=== PATIENT | male | born 1965 | race Two or more races ===

== ENCOUNTER 2022-04-28 09:54 | Inpatient (IN) | payer OTHER ==
[~2022-04-28] VITALS: Ht 167.6 cm; Wt 101.8 kg
[~2022-04-28 09:54] MED LIST: AML5T PO; LOSA-69 PO; MET50T PO
[2022-04-28 11:24] LABS: Albumin 2.5 g/dL (3.4-5.0); Calcium 8.7 mg/dL (8.5-10.1)
[2022-04-28 11:29] LABS: BUN/Creatinine Ratio 10.1; Bilirubin, Total 4.6 mg/dL (0.2-1.0); Total Protein 6.6 g/dL (6.4-8.2)
[2022-04-28 11:32] LABS: Potassium 2.3 mmol/L (3.5-5.1)
[2022-04-28 11:34] LABS: Basophils # (auto) 0 10 ^3/uL (0-0.2); Basophils % (auto) 0.4 % (0.0-2.0); Eosinophils # (auto) 0.1 10 ^3/uL (0-0.8); Eosinophils % (auto) 0.6 % (0.0-7.0); Hematocrit 34.6 % (41.0-53.0); Hemoglobin 11.6 g/dL (13.5-17.5); Lymphocytes # (auto) 1.7 10 ^3/uL (0.4-5.4); Lymphocytes % (auto) 18.5 % (10.0-50.0); Mean Corpuscular Hemoglobin 32.3 pg (28.0-32.0); Mean Corpuscular Hgb Conc. 33.7 g/dL (32.0-36.0); Monocytes # (auto) 0.7 10 ^3/uL (0-1.3); Monocytes % (auto) 7.7 % (0.0-12.0); Neutrophils # (auto) 6.7 10 ^3/uL (1.6-8.6); Neutrophils % (auto) 72.8 % (37.0-80.0); Nucleated Red Blood Cells % 0.7 %; Red Cell Distribution Width 21.5 % (11.8-14.3); White Blood Cell 9.2 10^3/uL (4.4-10.8)
[2022-04-28] MEDS ORDERED: SODIUM CHLORIDE 0.9% 500 ML IV ONE (12:00)
[2022-04-28] MEDS: MAGNESIUM SULFATE 1GM/100ML 100 ML IV SCH ×2 (12:19→13:34)
[2022-04-28] MEDS ORDERED: LORazepam 2MG/ML-1ML VIAL IV ONE (12:30)
[2022-04-28] MEDS ORDERED: LACTATED RINGER'S 1,000 ML IV ONE ×2 (12:30→16:30)
[2022-04-28 13:08] LABS: Alanine Aminotransferase 57 U/L (16-61); Albumin 2.4 g/dL (3.4-5.0); Alkaline Phosphatase 232 U/L (45-117); Anion Gap 15 (5-15); Aspartate Aminotransferase 134 U/L (15-37); BUN/Creatinine Ratio 12.6; Bilirubin, Total 4.2 mg/dL (0.2-1.0); Blood Alcohol < 3.0 mg/dL (0-5); Blood Urea Nitrogen 24 mg/dL (7-18); Calcium 8.3 mg/dL (8.5-10.1); Carbon Dioxide 28 mmol/L (21-32); Chloride 87 mmol/L (98-107); GFR African American 48 mL/min; GFR Non-African American 39 mL/min; Glucose 99 mg/dL (74-106); Magnesium 2.2 mg/dL (1.6-2.6); Sodium 130 mmol/L (136-145)
[2022-04-28 13:12] LABS: Potassium 2.2 mmol/L (3.5-5.1)
[2022-04-28] MEDS ORDERED: POTASSIUM CHL 20 Meq TABLET PO ONE (13:15)
[2022-04-28 13:54] LABS: Lactic Acid w/Reflex 2.1 mmol/L (0.4-2.0)
[2022-04-28] MEDS: POTASSIUM CHL 20MEQ/100ML 100 ML IV SCH ×5 (14:32→20:48)
[2022-04-28] MEDS ORDERED: MORPHINE SULFATE INJ 2 MG/ml SYRG IV PRN ×3 (14:45→21:00)
[2022-04-28] MEDS ORDERED: NITROGLYCERIN 0.4 MG SL TAB SL PRN (14:45)
[2022-04-28] MEDS ORDERED: SODIUM CHLORIDE 0.9% 2,000 ML IV ONE (14:45)
[2022-04-28] MEDS ORDERED: METOPROLOL TARTRATE 1MG/1ML-5ML VIAL IV PRN (14:45)
[2022-04-28] MEDS ORDERED: ONDANSETRON HCL 4 MG/2 ML VIAL IV PRN (14:45)
[2022-04-28 19:58] LABS: Calcium 8.7 mg/dL (8.5-10.1)
[2022-04-28 20:00] LABS: BUN/Creatinine Ratio 13.8
[2022-04-28 20:04] LABS: Potassium 2.6 mmol/L (3.5-5.1)
[2022-04-28] MEDS ORDERED: POTASSIUM CHL 20MEQ/100ML 100 ML IV SCH (20:45)
[2022-04-28] MEDS ORDERED: HYDROcodone-ACET 5/325MG TAB PO PRN (21:00)
[2022-04-28] MEDS ORDERED: PANTOPRAZOLE 40 MG/10 ML VIAL INJ IV ONE (21:00)
[2022-04-28] MEDS ORDERED: hydrALAZINE HCL 20 MG/ML VL IV PRN (21:00)
[2022-04-28] MEDS ORDERED: ACETAMINOPHEN 325 MG TAB PO PRN (21:00)
[2022-04-28] MEDS ORDERED: LORazepam 0.5 MG TAB PO PRN (21:00)
[2022-04-28] MEDS ORDERED: DOCUSATE SOD 100 MG CAP PO PRN (21:00)
[2022-04-28 21:48] LABS: INR 1.1 (0.9-1.15); Partial Thromboplastin Time 23.1 sec (23.6-33.0)
[2022-04-28 21:54] LABS: Magnesium 2.5 mg/dL (1.6-2.6); Phosphorus 1.2 mg/dL (2.5-4.90)
[2022-04-29 01:39] LABS: Calcium 8.6 mg/dL (8.5-10.1)
[2022-04-29 01:42] LABS: BUN/Creatinine Ratio 15.6
[2022-04-29 01:53] LABS: Potassium 2.8 mmol/L (3.5-5.1)
[2022-04-29] MEDS: POTASSIUM CHL 20MEQ/100ML 100 ML IV SCH (02:42)
[2022-04-29] MEDS ORDERED: POTASSIUM PHOSPHATE 44 MEQ in D5W 5% 250 ML IV ONE (02:45)
[2022-04-29] MEDS: SOD CHL 0.9%/ KCL 20MEQ 1,000 ML IV SCH ×3 (04:05→17:25)
[2022-04-29] MEDS: GABAPENTIN 100 MG CAP PO SCH ×3 (06:00→21:04)
[2022-04-29] MEDS: metroNIDAZOLE 500MG/100ML 100 ML IV SCH ×3 (06:11→21:04)
[2022-04-29 06:32] LABS: Basophils # (auto) 0 10 ^3/uL (0-0.2); Basophils % (auto) 0.5 % (0.0-2.0); Eosinophils # (auto) 0.1 10 ^3/uL (0-0.8); Hematocrit 29.2 % (41.0-53.0); Hemoglobin 9.9 g/dL (13.5-17.5); Lymphocytes # (auto) 1.6 10 ^3/uL (0.4-5.4); Mean Corpuscular Hemoglobin 32.9 pg (28.0-32.0); Mean Corpuscular Hgb Conc. 34.1 g/dL (32.0-36.0); Mean Corpuscular Volume 96.5 fL (80.0-100.0); Monocytes # (auto) 0.5 10 ^3/uL (0-1.3); Monocytes % (auto) 7.3 % (0.0-12.0); Neutrophils # (auto) 5.3 10 ^3/uL (1.6-8.6); Neutrophils % (auto) 70.2 % (37.0-80.0); Nucleated Red Blood Cells % 0.4 %; Red Blood Cells 3.03 10^6/uL (4.5-5.90); White Blood Cell 7.5 10^3/uL (4.4-10.8)
[2022-04-29 06:35] LABS: Albumin 2.2 g/dL (3.4-5.0); Anion Gap 10 (5-15); Blood Urea Nitrogen 23 mg/dL (7-18); Calcium 8.5 mg/dL (8.5-10.1); Carbon Dioxide 29 mmol/L (21-32); Chloride 94 mmol/L (98-107); Glucose 101 mg/dL (74-106); Lipase 1213 U/L (73-393); Magnesium 2.4 mg/dL (1.6-2.6); Sodium 133 mmol/L (136-145)
[2022-04-29 06:43] LABS: Thyroid Stimulating Hormone 1.96 uIU/mL (0.358-3.74)
[2022-04-29 06:49] LABS: Alanine Aminotransferase 58 U/L (16-61); Alkaline Phosphatase 214 U/L (45-117); Aspartate Aminotransferase 137 U/L (15-37); BUN/Creatinine Ratio 19.3; Bilirubin, Total 4.5 mg/dL (0.2-1.0); CRP High Sensitivity 8.29 mg/dL (< 0.3); Cholesterol 275 mg/dL (< 200); Creatine Kinase IFCC 369 U/L (39-308); GFR African American 82 mL/min; GFR Non-African American 67 mL/min; HDL Cholesterol 9 mg/dL (40-59); Phosphorus 1.4 mg/dL (2.5-4.90); Total Protein 5.9 g/dL (6.4-8.2); Triglycerides 736 mg/dL (< 150); Uric Acid 6.1 mg/dL (3.5-7.2)
[2022-04-29 06:58] LABS: Potassium 2.9 mmol/L (3.5-5.1)
[2022-04-29] MEDS ORDERED: POTASSIUM CHL 20 Meq TABLET PO ONE (07:15)
[2022-04-29 08:09] LABS: INR 1.06 (0.9-1.15); Partial Thromboplastin Time 22.5 sec (23.6-33.0)
[2022-04-29] MEDS: cefTRIAXone 1GM/50ML D5W 50 ML IV SCH (09:51)
[2022-04-29 10:33] VITALS: BP 119/81
[2022-04-29 10:33] LABS: Urine Bacteria FEW /hpf (None Seen); Urine Blood 3+ /uL (Negative); Urine Hyaline Cast FEW /lpf (0 - 2); Urine WBC 13 /hpf (0 - 3)
[2022-04-29 10:58] LABS: Alcohol, Urine < 3.0 mg/dL (0-10); Amphetamine Screen, Urine NEGATIVE (NEGATIVE); Barbiturate Scree,Urine NEGATIVE (NEGATIVE); Benzodiazephine Screen, Urine NEGATIVE (NEGATIVE); Cannabinoid Screen, Urine NEGATIVE (NEGATIVE); Cocaine Screen, Urine NEGATIVE (NEGATIVE); Opiate Scree,Urine NEGATIVE (NEGATIVE); Phencyclidine Screen, Urine NEGATIVE (NEGATIVE); Protein, Urine 47.3 mg/dL (0.0-11.9)
[2022-04-29] MEDS: ASPirin 81 mg TAB PO SCH (11:00)
[2022-04-29] MEDS: ENOXAPARIN SOD 40 MG/0.4 ML SYRINGE SC SCH (11:00)
[2022-04-29] MEDS: METOPROLOL SUCCINATE XL 50 MG TAB PO SCH (11:01)
[2022-04-29] MEDS: PANTOPRAZOLE 40 MG/10 ML VIAL INJ IV SCH (11:01)
[2022-04-29 17:18] LABS: BUN/Creatinine Ratio 15.8; Calcium 8.7 mg/dL (8.5-10.1); Potassium 3.6 mmol/L (3.5-5.1)
[2022-04-29] MEDS: TAMSULOSIN HYDROCHLORIDE 0.4 MG CAP PO SCH (19:55)
[2022-04-29 22:00] VITALS: BP 127/77
[2022-04-30 04:13] LABS: Hematocrit 26.4 % (41.0-53.0); Hemoglobin 9.2 g/dL (13.5-17.5); Mean Corpuscular Hgb Conc. 34.7 g/dL (32.0-36.0); White Blood Cell 9.1 10^3/uL (4.4-10.8)
[2022-04-30 04:34] LABS: Red Cell Distribution Width 21.4 % (11.8-14.3)
[2022-04-30 04:35] LABS: Basophils % (manual) 0 (0.0-2.0); Blast Cells 0; Myelocytes % 0; Promyelocytes % 0; Reactive Lymphocytes 0
[2022-04-30 04:37] LABS: Calcium 8.3 mg/dL (8.5-10.1); Potassium 3.1 mmol/L (3.5-5.1)
[2022-04-30 04:40] LABS: BUN/Creatinine Ratio 19.3
[2022-04-30 05:00] VITALS: BP 143/90
[2022-04-30] MEDS: GABAPENTIN 100 MG CAP PO SCH ×3 (05:17→22:12)
[2022-04-30] MEDS: metroNIDAZOLE 500MG/100ML 100 ML IV SCH ×3 (05:17→22:11)
[2022-04-30] MEDS: SOD CHL 0.9%/ KCL 20MEQ 1,000 ML IV SCH ×2 (06:34→22:20)
[2022-04-30 06:54] LABS: Band Neutrophils % (manual) 32; Eosinophils % (manual) 3 (0-7); Lymphocytes % (manual) 19 (10.0-50.0); Metamyelocytes % 2; Monocytes % (manual) 5 (0-12)
[2022-04-30 09:00] VITALS: BP 145/76
[2022-04-30] MEDS: METOPROLOL SUCCINATE XL 50 MG TAB PO SCH (11:39)
[2022-04-30] MEDS: ASPirin 81 mg TAB PO SCH (11:40)
[2022-04-30] MEDS: PANTOPRAZOLE 40 MG/10 ML VIAL INJ IV SCH (11:42)
[2022-04-30] MEDS: ENOXAPARIN SOD 40 MG/0.4 ML SYRINGE SC SCH (11:44)
[2022-04-30] MEDS: cefTRIAXone 1GM/50ML D5W 50 ML IV SCH (11:52)
[2022-04-30 13:00] VITALS: BP 115/83
[2022-04-30 17:00] VITALS: BP 108/74
[2022-04-30] MEDS: TAMSULOSIN HYDROCHLORIDE 0.4 MG CAP PO SCH (18:04)
[2022-04-30] MEDS ORDERED: POTASSIUM EFFERVESENT TAB 25 MEQ PO ONE (18:45)
[2022-04-30] MEDS ORDERED: LEVO-28 PO (18:45)
[2022-04-30] MEDS ORDERED: POTASSIUM CHL 20MEQ/100ML 100 ML IV SCH (18:45)
[2022-04-30] MEDS ORDERED: GAB100C PO (18:45)
[2022-04-30 21:33] LABS: Lactic Acid w/Reflex 2.4 mmol/L (0.4-2.0)
[2022-04-30 22:00] VITALS: BP 112/69
[2022-05-01 04:50] VITALS: BP 127/90
[2022-05-01] MEDS: metroNIDAZOLE 500MG/100ML 100 ML IV SCH (05:53)
[2022-05-01] MEDS: GABAPENTIN 100 MG CAP PO SCH (05:53)
[2022-05-01 09:00] VITALS: BP 112/69
[2022-05-01] MEDS: cefTRIAXone 1GM/50ML D5W 50 ML IV SCH (09:14)
[2022-05-01] MEDS: METOPROLOL SUCCINATE XL 50 MG TAB PO SCH (09:15)
[2022-05-01] MEDS: ENOXAPARIN SOD 40 MG/0.4 ML SYRINGE SC SCH (09:15)
[2022-05-01] MEDS: ASPirin 81 mg TAB PO SCH (09:15)
[2022-05-01] MEDS: PANTOPRAZOLE 40 MG/10 ML VIAL INJ IV SCH (09:15)
[2022-05-01] MEDS: SOD CHL 0.9%/ KCL 20MEQ 1,000 ML IV SCH (09:25)
[2022-05-01 13:06] VITALS: BP 111/77
== END 2022-05-01 15:13 | disposition home or self-care (01) | DRG 433 ==
LOC: EDBD 09:54 → ER 09:54 → TELE 14:44 → TELE-CENTR 04-29 18:22
PROVIDERS: ADMIT Hospitalist; ATTEND Internal Medicine
DX: K70.10 Alcoholic hepatitis without ascites (principal); N39.0 Urinary tract infection, site not specified; I47.1 Supraventricular tachycardia; N17.9 Acute kidney failure, unspecified; E87.1 Hypo-osmolality and hyponatremia; E87.3 Alkalosis; E87.6 Hypokalemia; D64.9 Anemia, unspecified; I12.9 Hypertensive chronic kidney disease with stage 1 through stage 4 chronic kidney disease, or unspecified chronic kidney disease; N18.31 Chronic kidney disease, stage 3a; K75.81 Nonalcoholic steatohepatitis (NASH); E83.39 Other disorders of phosphorus metabolism; E78.5 Hyperlipidemia, unspecified; R25.1 Tremor, unspecified; R74.8 Abnormal levels of other serum enzymes; Z20.822 Contact with and (suspected) exposure to COVID-19; I49.9 Cardiac arrhythmia, unspecified; K40.20 Bilateral inguinal hernia, without obstruction or gangrene, not specified as recurrent; F10.20 Alcohol dependence, uncomplicated; R79.89 Other specified abnormal findings of blood chemistry; E66.01 Morbid (severe) obesity due to excess calories; I48.91 Unspecified atrial fibrillation; N20.0 Calculus of kidney; Z87.442 Personal history of urinary calculi; Z68.36 Body mass index [BMI] 36.0-36.9, adult
CPT/HCPCS: 36415; 36600; 71045; 74176; 74181; 76705; 80048; 80053; 80061; 80307; 80320; 81001; 82270; 82435; 82436; 82550; 82728; 82805; 83036; 83605; 83615; 83690; 83735; 83880; 84100; 84156; 84300; 84439; 84443; 84484; 84550; 85007; 85025; 85027; 85379; 85610; 85652; 85730; 86141; 87040; 87086; 93005; 94660; 96365; 96366; C9113; G0378; J0696; J3480; J3490; J7060

== ENCOUNTER 2022-05-16 07:56 | Day surgery (SDC) | payer OTHER ==
[2022-04-19 11:02] LABS: INR 1.17 (0.9-1.15)
[2022-04-19 11:32] LABS: Albumin 3.1 g/dL (3.4-5.0); Calcium 8.1 mg/dL (8.5-10.1)
[2022-04-19 11:33] LABS: Basophils # (auto) 0 10 ^3/uL (0-0.2); Basophils % (auto) 0.8 % (0.0-2.0); Eosinophils # (auto) 0 10 ^3/uL (0-0.8); Eosinophils % (auto) 0.2 % (0.0-7.0); Hematocrit 42.3 % (41.0-53.0); Hemoglobin 14.6 g/dL (13.5-17.5); Lymphocytes # (auto) 1.5 10 ^3/uL (0.4-5.4); Lymphocytes % (auto) 26.7 % (10.0-50.0); Mean Corpuscular Hemoglobin 32.1 pg (28.0-32.0); Mean Corpuscular Hgb Conc. 34.5 g/dL (32.0-36.0); Mean Corpuscular Volume 93.1 fL (80.0-100.0); Monocytes # (auto) 0.6 10 ^3/uL (0-1.3); Monocytes % (auto) 10.1 % (0.0-12.0); Neutrophils # (auto) 3.5 10 ^3/uL (1.6-8.6); Neutrophils % (auto) 62.2 % (37.0-80.0); Nucleated Red Blood Cells % 1.3 %; Red Blood Cells 4.54 10^6/uL (4.5-5.90); White Blood Cell 5.7 10^3/uL (4.4-10.8)
[2022-04-19 11:36] LABS: BUN/Creatinine Ratio 2.7; Bilirubin, Total 1.4 mg/dL (0.2-1.0); Total Protein 7.3 g/dL (6.4-8.2)
[2022-04-19 11:46] LABS: Potassium 2.5 mmol/L (3.5-5.1)
[~2022-05-16] VITALS: Ht 177.8 cm; Wt 93.0 kg
[~2022-05-16 07:56] MED LIST changes: +GAB100C PO; +ceFAZolin 1GM/50ML 100 ML IV ONE
[2022-05-16] MEDS ORDERED: ceFAZolin 1GM/50ML 100 ML IV ONE (09:28)
[2022-05-16] MEDS ORDERED: IOHEXOL 300 MG/ML 100ML BOTTLE IJ ONE (10:10)
[2022-05-16] MEDS ORDERED: fentaNYL CITRATE 100 MCG/2 ML VL ONE (10:15)
[2022-05-16] MEDS ORDERED: PROPOFOL 10 MG/ML 20 ML IV ONE ×2 (10:15→11:08)
[2022-05-16] MEDS ORDERED: MIDAZOLAM HCL 2MG/2ML 2ml VIAL (1mg/ml) ONE (10:15)
[2022-05-16] MEDS ORDERED: ROCURONIUM 10MG/ML 10ML VIAL IV ONE ×2 (10:25→10:26)
[2022-05-16] MEDS ORDERED: LIDOCAINE 2% (LOCAL ANESTH.) PF 5ml SDV ONE (10:55)
[2022-05-16] MEDS ORDERED: ONDANSETRON HCL 4 MG/2 ML VIAL ONE (10:55)
[2022-05-16] MEDS ORDERED: PHENYLEPHRINE HCL 10 MG/ML VL ONE (10:55)
[2022-05-16] MEDS ORDERED: GLYCOPYRROLATE 0.2 MG/ML 1ML VIAL ONE (12:00)
[2022-05-16] MEDS ORDERED: NEOSTIGMINE 1 MG/ML INJ (10mg/10ML VIAL) ONE (12:00)
[2022-05-16 12:10] VITALS: BP 117/78
== END 2022-05-16 12:35 | disposition home or self-care (01) ==
LOC: SUR 07:56
PROVIDERS: ATTEND Urology
DX: N20.0 Calculus of kidney (principal); N13.5 Crossing vessel and stricture of ureter without hydronephrosis; M10.9 Gout, unspecified; Z98.890 Other specified postprocedural states; Z79.899 Other long term (current) drug therapy; Z20.822 Contact with and (suspected) exposure to COVID-19; Z87.891 Personal history of nicotine dependence
CPT/HCPCS: 36415; 52332; 74018; 76000; 80053; 85025; 85610; 85730; 88305; 88342; C1726; C1769; J0690; J2001; J2250; J2370; J2405; J2704; J3010; Q9967; U0003